=== PATIENT | female | born 1960 | race Caucasian/White ===

== ENCOUNTER 2018-01-25 09:20 | Emergency (ER) | payer OTHER ==
--- NOTE | 2018-01-25 10:33 | ED Physician Chart ---
ED Chief Complaint/HPI - Patient Information Date Seen:: 01/25/18 Time Seen:: 09:30 Chief Complaint:: Sore Throat History of Present Illness:: onsetx 3 days of S/T, congestion, and fever; pt denies trauma, H/As, E/As, cough , neck pain, C/P, SOB, Abd. Pain, A/N/V/D/C, dysphagia, chills, or urinary s/s; pt is eating and is urinating well; pt last urinated one hour [employer] Allergies:: Allergies Allergy/AdvReac Type Severity Reaction Status Date / Time No Known Allergies Allergy Verified 01/25/18 09:31 Vitals:: Vital Signs - 8 hr 01/25/18 09:31 Temp 98.5 F HR 94 RR 16 BP 135/88 O2 Sat % 99 Historian:: Patient Review:: Nurse's Note Reviewed ED Review of Systems - Review of Systems General/Constitutional: Fever, No chills, No weight loss, No weakness, No diaphoresis, No edema, No loss of appetite Skin: No skin lesions, No rash, No bruising Head: No headache, No light-headedness Eyes: No loss of vision, No pain, No diplopia ENT: No earache, Nasal drainage, Sore throat, No tinnitus Neck: No neck pain, No swelling, No thyromegaly, No stiffness, No mass noted Cardio Vascular: No chest pain, No palpitations, No PND, No orthopnea, No edema Pulmonary: No SOB, No cough, No sputum, No wheezing GI: No nausea, No vomiting, No diarrhea, No pain, No melena, No hematochezia, No constipation, No hematemesis G/U: No dysuria, No frequency, No hematuria, No nacturia Health Sciences Manager: No vaginal discharge, No abnormal vaginal bleed, No contraction Musculoskeletal: No bone or joint pain, No back pain, No muscle pain Endocrine: No polyuria, No polydipsia Psychiatric: No prior psych history, No depression, No anxiety, No suicidal ideation, No homicidal ideation, No auditory hallucination, No visual hallucination Hematopoietic: No bruising, No lymphadenopathy Allergic/Immuno: No urticaria, No angioedema Neurological: No syncope, No focal symptoms, No weakness, No paresthesia, No headache, No seizure, No dizziness, No confusion, No vertigo ED Past Medical History - Past Medical History Obtainable: Yes Past Medical History: PUD/GERD Family History: HTN Social History: Non Smoker, No Alcohol, No Drug Use, , Employed Surgical History: None Psychiatricy History: None Medication: Reviewed Family Medical History - Family Member Mother Living Status: Still Living Other Medical History: deaf and blind ED Physical Exam - Physical Examination General/Constitutional: Awake, Well-developed, well-nourished, Alert, No distress, GCS 15, Non-toxic appearing, Ambulatory Head: Atraumatic Eyes: Lids, conjuctiva normal, PERRL, EOMI Skin: Nl inspection, No rash, No skin lesions, No ecchymosis, Well hydrated, No lymphadenopathy ENMT: External ears, nose nl, TM canals nl, Nasal exam nl, Lips, teeth, gums nl , Tonsils nl Other ENMT comments:: Pharynx: Injected; no exudates; no abscesses; no FBs; no airway obstruction; + Nasal Congestion Neck: Nontender, Full ROM w/o pain, No JVD, No nuchal rigidity, No bruit, No mass, No stridor Other Neck comments:: supple; no meningeal signs; no cervical tenderness; no bruits Respiratory: Nl effort/Exclusion, Clear to Auscultation, No Wheeze/Rhonchi/Rales Cardio Vascular: RRR, No murmur, gallop, rubs, NL S1 S2, Carotid/Femoral/Distal pulses equal bilaterally GI: No tenderness/rebounding/guarding, No organomegaly, No hernia, Normal BS's, Nondistended, No mass/bruits, No McBurney tenderness Other GI comments:: no pulsatile masses; good BS : No CVA tenderness Extremities: No tenderness or effusion, Full ROM, normal strength in all extremities, No edema, Normal digits & nails Neuro/Psych: Alert/oriented, DTR's symmetric, Normal sensory exam, Normal motor strength, Judgement/insight normal, Mood normal, Normal gait, No focal deficits Other Neuro/Psych comments:: no focal signs Misc: Normal back, No paraspinal tenderness ED Septic Shock - . Is Septic Shock (SBP<90, OR Lactate>4 mmol\L) present?: No - <6hrs of presentation: Vital Signs: Vital Signs - 8 hr 08/07/18 09:31 Temp 98.5 F HR 94 RR 16 BP 135/88 O2 Sat % 99 ED Reassessment (Disposition) - Reassessment Reassessment:: pt tolerated po fluids well in ER; pt is asymptomatic upon discharge Reassessment Condition:: Improved - Diagnosis Diagnosis:: Pharyngitis; Sore Throat; Congestion; Sinusitis; Fever; URI - Aftercare/Follow up Instructions Aftercare/Follow-Up Instructions:: Counseled pt regarding lab results/diagnosis & need follow up, Refer to Discharge Instructions, Counseled pt & family regarding lab results/diagnosis & need follow up Medication Prescribed:: Rx: Amoxicillin 500mg po tid x 10 days; Tylenol 500mg po qid prn fever/pain; Cool Mist Vaporizer; Salt Water Gargles; Encourage Fluids - Patient Disposition Discharge/Transfer:: Home Condition at Disposition:: Stable, Improved (RTER prn if existing s/s reoccur and/or get worse and/or any other new s/s occur; ACIs given for all above Dx; Refer to ENT Specialist/[facility]; F/U with PMD in one day or prn; RTER prn if concerned)
== END 2018-01-25 10:10 | disposition home or self-care (01) ==
LOC: ER 09:20
DX: J02.9 Acute pharyngitis, unspecified (principal); J06.9 Acute upper respiratory infection, unspecified; J32.9 Chronic sinusitis, unspecified; K21.9 Gastro-esophageal reflux disease without esophagitis
CPT/HCPCS: Z7502

== ENCOUNTER 2018-01-26 09:36 | Emergency (ER) | payer OTHER ==
[2018-01-26] MEDS ORDERED: Morphine Sulfate 2 mg/mL 1mL Syr ONE (10:24)
--- NOTE | 2018-01-26 10:24 | ED Physician Chart ---
ED Chief Complaint/HPI - Patient Information Date Seen:: 01/26/18 Time Seen:: 09:53 Chief Complaint:: Sore Throat History of Present Illness:: onset x 3 days of S/T, fever, and congestion,; pt admits to H/As, E/As, C/P, cough, and SOB x one day; pt Rx with Amoxicillin x one day with no improvement Allergies:: Allergies Allergy/AdvReac Type Severity Reaction Status Date / Time No Known Allergies Allergy Verified 01/25/18 09:31 Vitals:: Vital Signs - 8 hr 01/26/18 09:53 Temp 98.6 F HR 102 RR 17 BP 119/81 O2 Sat % 100 Historian:: Patient, Friend Review:: Nurse's Note Reviewed, Old Chart Reviewed ED Review of Systems - Review of Systems General/Constitutional: Fever, No chills, No weight loss, No weakness, No diaphoresis, No edema, No loss of appetite Skin: No skin lesions, No rash, No bruising Head: No headache, No light-headedness Eyes: No loss of vision, No pain, No diplopia ENT: Earache, Nasal drainage, Sore throat, No tinnitus Neck: No neck pain, No swelling, No thyromegaly, No stiffness, No mass noted Cardio Vascular: Chest pain, No palpitations, No PND, No orthopnea, No edema Pulmonary: SOB, Cough, No sputum, No wheezing GI: No nausea, No vomiting, No diarrhea, No pain, No melena, No hematochezia, No constipation, No hematemesis G/U: No dysuria, No frequency, No hematuria, No nacturia Ultrasound Tech: No vaginal discharge, No abnormal vaginal bleed, No contraction Musculoskeletal: No bone or joint pain, No back pain, No muscle pain Endocrine: No polyuria, No polydipsia Psychiatric: No prior psych history, No depression, No anxiety, No suicidal ideation, No homicidal ideation, No auditory hallucination, No visual hallucination Hematopoietic: No bruising, No lymphadenopathy Allergic/Immuno: No urticaria, No angioedema Neurological: No syncope, No focal symptoms, No weakness, No paresthesia, Headache, No seizure, No dizziness, No confusion, No vertigo ED Past Medical History - Past Medical History Obtainable: Yes Past Medical History: PUD/GERD Family History: HTN Social History: Non Smoker, No Alcohol, No Drug Use, , Employed Surgical History: None Psychiatricy History: None Medication: Reviewed Family Medical History - Family Member Mother Living Status: Still Living ED Physical Exam - Physical Examination General/Constitutional: Awake, Well-developed, well-nourished, Alert, No distress, GCS 15, Non-toxic appearing, Ambulatory Head: Atraumatic Eyes: Lids, conjuctiva normal, PERRL, EOMI Skin: Nl inspection, No rash, No skin lesions, No ecchymosis, Well hydrated, No lymphadenopathy ENMT: External ears, nose nl, Nasal exam nl, Lips, teeth, gums nl, Tonsils nl Other ENMT comments:: Ears: TMs: dull and injected; Pharynx: Injected Neck: Nontender, Full ROM w/o pain, No JVD, No nuchal rigidity, No bruit, No mass, No stridor Respiratory: Nl effort/Exclusion, Clear to Auscultation, No Wheeze/Rhonchi/Rales Cardio Vascular: RRR, No murmur, gallop, rubs, NL S1 S2, Carotid/Femoral/Distal pulses equal bilaterally GI: No tenderness/rebounding/guarding, No organomegaly, No hernia, Normal BS's, Nondistended, No mass/bruits, No McBurney tenderness : No CVA tenderness Extremities: No tenderness or effusion, Full ROM, normal strength in all extremities, No edema, Normal digits & nails Neuro/Psych: Alert/oriented, DTR's symmetric, Normal sensory exam, Normal motor strength, Judgement/insight normal, Mood normal, Normal gait, No focal deficits Misc: Normal back, No paraspinal tenderness ED Labs/Radiology/EKG Results - Lab Results Comments:: Reviewed - Radiology Results Comments:: + Prominent Lymph nodes; + Pilar-Tonsillar and Parapharyngeal soft tissue swelling; ? Abscess - EKG Interpretations EKG Time:: 10:24 Rate & Rhythm: 101; ST Comments:: non-specific st-t changes ED Septic Shock - . Is Septic Shock (SBP<90, OR Lactate>4 mmol\L) present?: No - <6hrs of presentation: Vital Signs: Vital Signs - 8 hr 01/26/18 09:53 Temp 98.6 F HR 102 RR 17 BP 119/81 O2 Sat % 100 ED Reassessment (Disposition) - Reassessment Reassessment Condition:: Improved - Diagnosis Diagnosis:: Pharyngitis; Otitis Media; URI; Bronchitis; Sinusitis; Leukocytosis; Parapharyngeal Abscess; Dysphagia - Aftercare/Follow up Instructions Aftercare/Follow-Up Instructions:: Counseled pt regarding lab results/diagnosis & need follow up, Counseled pt & family regarding lab results/diagnosis & need follow up Notes:: Dr. Santos notified; Spoke with Dr. Santos Medication Prescribed:: pt to be transferred via EMS as a direct admissionto Telemetry Bed at [facility] - Patient Disposition Discharge/Transfer:: Acute Care (other hosp) Accepting Physician:: Dr. Rosario/ Dr. Long (ENT Specialist) Time Called:: 1145 Time Responded:: 11:45 Admitted to:: Telemetry Spoke to:: Dr. Rosario Admitting Medical Physician:: Dr. Rosario Condition at Disposition:: Stable, Improved
[2018-01-26 10:27] LABS: % EOSINOPHILS 0.3 % (0.0-5.0); % LYMPHOCYTES 9.6 % (20.0-50.0); % MONOCYTES 6.3 % (2.0-10.0); % NEUTROPHILS 83.8 % (40.0-80.0); HEMATOCRIT 47.1 % (41.0-60); HEMOGLOBIN 16.1 gm/dL (12-16); LYMPHOCYTE ABSOLUTE 1.3 Th/cmm (1.5-3.0); MEAN CELL VOLUME 88.1 fl (81-100); MEAN CORPUSCULAR HEMOGLOBIN 30.2 pg (27.0-31.0); MEAN CORPUSCULAR HGB CONC 34.3 pg (28.0-36.0); MEAN PLATELET VOLUME 6.6 fl; MONOCYTE ABSOLUTE 0.8 Th/cmm (0.3-1.0); PLATELET COUNT 323 Th/cmm (150-400); RED BLOOD COUNT 5.35 Mil/cmm (3.80-5.10); RED CELL DISTRIBUTION WIDTH 11.5 % (11.5-20.0); WHITE BLOOD COUNT 13.1 Th/cmm (4.8-10.8)
[2018-01-26] MEDS: cefTRIAXone 1 GM in Sodium Chloride 0.9% 50 ML IV ONE (10:30)
[2018-01-26] MEDS: Morphine Sulfate 2 mg/mL 1mL Syr IVP ONE (10:32)
[2018-01-26] MEDS: Sodium Chloride 0.9% 1,000 ML IV ONE (10:33)
[2018-01-26 10:39] LABS: INR 0.96 (0.5-1.4)
[2018-01-26 11:26] LABS: URINE SOURCE CLEAN C
[2018-01-26 11:32] LABS: URINE BILIRUBIN NEGATIVE (NEGATIVE); URINE BLOOD MODERATE (NEGATIVE); URINE GLUCOSE (UA) NEGATIVE (NEGATIVE); URINE KETONE 15 mg/dL (NEGATIVE); URINE LEUKOCYTE ESTERASE NEGATIVE (NEGATIVE); URINE MICROSCOPIC INDICATED? YES; URINE NITRATE NEGATIVE (NEGATIVE); URINE PH 8.5 (4.6 - 8.0); URINE PROTEIN NEGATIVE (NEGATIVE); URINE UROBILINOGEN 0.2 E.U./dL (0.2 - 1.0)
[2018-01-26 11:42] LABS: URINE CLARITY HAZY (CLEAR); URINE COLOR YELLOW
[2018-01-26 11:46] LABS: URINE BACTERIA NONE SEEN /hpf (NONE SEEN); URINE EPITHELIAL CELLS FEW /lpf (FEW); URINE WBC 0-2 /hpf (0-5)
--- NOTE | 2018-01-26 11:53 | Diagnostic Imaging Report ---
CHEST X-RAY: AP view INDICATION: Cough COMPARISON: None FINDINGS.: mild chronic lung changes are noted. There is no focal consolidation or pleural effusions The heart is normal in size. Atherosclerosis is noted. Degenerative changes of the spine are noted. IMPRESSION: Mild chronic lung changes. No focal consolidation identified Atherosclerotic vascular disease.
[2018-01-26 13:11] LABS: ALB/GLOB RATIO 1.4 (1.0-1.8); ALBUMIN 4.4 gm/dL (3.7-5.3); ALKALINE PHOSPHATASE 60 U/L (34-104); ANION GAP 15.9 (7.0-16.0); BILIRUBIN,TOTAL 1.2 mg/dL (0.3-1.0); BUN - UREA NITROGEN 8 mg/dL (7-25); CALCIUM SERUM 9.9 mg/dL (8.6-10.3); CHLORIDE 103 mEq/L (98-107); CHOLESTEROL 237 mg/dL (<200); CREATININE - SERUM 0.6 mg/dL (0.6-1.2); CREATININE KINASE 53 U/L (30-223); GFR AFRICAN-AMERICAN > 60.0 ml/min (>90); GFR NON AFRICAN-AMERICAN > 60.0 ml/min; GLUCOSE 106 mg/dL (70-105); HDL -HIGH DENSITY LIPOPROTEIN 68 mg/dL (23-92); POTASSIUM SERUM 3.9 mEq/L (3.5-5.1); SGOT 16 U/L (13-39); SGPT/ALT 16 U/L (7-52); SODIUM SERUM 138 mEq/L (136-145); TOTAL PROTEIN,SERUM 7.5 gm/dL (6.0-8.3); TRIGLYCERIDES 115 mg/dL (<150)
[2018-01-26 13:16] LABS: AMYLASE SERUM 29 U/L (29-103); LIPASE 14 U/L (11-82)
--- NOTE | 2018-01-26 13:29 | Diagnostic Imaging Report ---
CT soft tissues of the neck without IV contrast History: Dysphagia Comparison: None Technique: Axial images of the soft tissues of the neck were obtained without IV contrast. Reconstructions were made. Total DLP 251, CTD I 10 Findings: Exam is limited due to lack of IV contrast. There is diffuse low-density along the left peritonsillar and left parapharyngeal region with diffuse associated mass effect extending inferiorly. There is encroachment upon the airway surrounding mild prominent lymph nodes are noted. The bilateral parotid and submandibular gland are preserved. There is mild retropharyngeal soft tissue swelling asymmetric to the left side. There is thickening of the uvula. Heterogeneous thyroid gland is noted. The lung apices demonstrate hypoventilatory atelectatic changes. Degenerative changes of the spine are noted with mild scoliosis. There is loss of the dentition. IMPRESSION: Limited exam due to lack of IV contrast. Diffuse left peritonsillar and parapharyngeal soft tissue swelling is seen extending inferiorly and with associated extension into the retropharyngeal soft tissues. This may be due to phlegmonous changes. Early abscess formation cannot be excluded, however again, exam, exam was limited due to lack of IV contrast. There is associated encroachment upon the airway. Clinical correlation and follow-up is recommended. Mildly prominent surrounding lymph nodes, nonspecific and possibly reactive. Thickening of the uvula which also may be due to inflammatory process.
[2018-01-26] MEDS ORDERED: Aspirin 81mg Chewable Tab ONE (14:32)
[2018-01-26] MEDS: Aspirin 325 mg EC PO ONE (14:34)
== END 2018-01-26 17:28 | disposition short-term general hospital (02) ==
LOC: ER 09:36
DX: J02.9 Acute pharyngitis, unspecified (principal); J40 Bronchitis, not specified as acute or chronic; J06.9 Acute upper respiratory infection, unspecified; J32.9 Chronic sinusitis, unspecified; H66.90 Otitis media, unspecified, unspecified ear; D72.829 Elevated white blood cell count, unspecified; R13.10 Dysphagia, unspecified; K21.9 Gastro-esophageal reflux disease without esophagitis
CPT/HCPCS: 99285; 96365; 96375; 94760; 93005; 71045; 70490; 84484; 83880; 36415; 85379; 85025; 85610; 87086; 81001; 82150; 82550; 84703; 83690; 80053; 80061; 87081; J2270; J1885; J2405; J0696; J7030; Z7610